=== PATIENT | female | born 1990 | race Caucasian/White ===

== ENCOUNTER 2023-12-08 07:43 | Inpatient (IN) ==
[~2023-12-08 07:43] MED LIST: ceFAZolin 2000MG 2,000 MG/15 ML SYR IV SCH
[2023-12-08] MEDS ORDERED: LIDOCAINE 1% LOCAL 20 ML VIAL INFIL PRN (08:04)
[2023-12-08] MEDS ORDERED: ACETAMINOPHEN 325 MG TAB PO PRN (08:04)
[2023-12-08] MEDS ORDERED: CALCIUM CARBONATE 500 MG CHEWABLE TAB PO PRN (08:04)
[2023-12-08 08:32] LABS: Hematocrit (blood only) 38.3 % (37.0-47.0); Hemoglobin 13.3 g/dl (12.0-16.0); Mean Corpuscular Hemoglobin 32.9 pg (25.0-34.0); Mean Corpuscular Hgb Conc 34.7 g/dL (32.0-36.0); Mean Corpuscular Volume 94.8 fL (80.0-100.0); Mean Platelet Volume 9.3 fL (9.4-12.4); Platelet Count 165 K/uL (130-400); RDW Coefficient of Variation 12.1 % (11.5-14.5); RDW Standard Deviation 41.9 fL (36.4-46.3); Red Blood Count 4.04 M/uL (4.20-5.40); White Blood Count 9.24 K/ul (4.8-10.8)
--- NOTE | 2023-12-08 09:15 | History & Physical Report ---
Date of Service December 08, 2023 Assessment & Plan (1) Encounter for supervision of normal first : Plan Pt is a 33 y/o female currently at 41 WGA with an ERIC 12/01/23 as determined by Ultrasound who is here for induction. Her has been uncomplicated. Vitals and Hgb are currently stable. Cervical balloon catheter placed Will start Pitocin Monitor BP Consult anesthesiology for epidural per pt request Admission and Anticipated Discharge Date Admission Date: December 08, 2023 History of Present Illness Primary Care Provider: NO PCP Pt is a 33 y/o female currently at 41 WGA with an ERIC 12/01/23 as determined by Ultrasound who is here for induction. Her was uncomplicated. _X contractions; _X movement; _ fluid loss; _ bloody show External FHT and external uterine monitors used; Category 1 tracing; moderate FHT variability. Had regular appointments with OB. Labs: (04/26/23) Blood type: O+ Antibody screen: neg H.3 (today) Hct:38.3% (today) WBC: 9.24 (today) Plt: 165 (today) Rubella: Non-immune VDRL/RPR: Neg Gonorrhea: Neg Chlamydia: Neg HIV: neg HbSAg: Non immune GBS: neg Other screens: cff-DNA: _ (see scanned documents) Allergies Allergy/AdvReac Type Severity Reaction Status Date / Time lactose Allergy Intermediate Hives Verified 12/07/23 09:54 Home Medications Medication Instructions Recorded Confirmed Type fluoxetine 20 mg tablet 20 mg PO DAILY 12/08/23 12/08/23 History vits no.124-ferrous fum 1 tab PO DAILY 12/08/23 12/08/23 History 27 mg iron-folic acid 800 mcg tablet ( Vitamin) Patient History Medical History (Updated 12/08/23 @ 09:52 by Jyoti Nolasco DO) HSV-1 (herpes simplex virus 1) infection PTSD (post-traumatic stress disorder) Varicella vaccination Surgical History No pertinent past surgical history Family History Mother Cancer Dyslipidemia Alcoholism Father Dyslipidemia Alcoholism Denies family history of Ovarian cancer Breast cancer Colonic polyp Social History (Updated 09/21/23 @ 13:15 by Jennyfer Blake RN) Smoking Status: Never smoker Do You Dip or Chew Tobacco: No; Hx Alcohol Use: No Hx Substance Use: No Preferred Language: Occitan Communication Ability: Effective Instrument Lens Generator Required: No Beliefs That Will Affect Care: None marital status: marital status details: [place] [phone] Current Living Situation: Spouse and Family Current Living Situation Comment: and in-laws current occupational status: employed current occupation: [employer] Feels Safe at Home: Yes Safety Concerns: Feels Safe At This Time Assistive Devices: None Review of Systems Denies fever, chills, sweats Denies shortness of breath, difficulty breathing, chest pain, palpitations, chest pressure. Denies breast pain. Denies dysuria. Denies headache or changes in vision. Physical Exam Physical Exam: General: Alert, oriented. No acute distress. Cardiac: Regular rate and rhythm, no murmurs/rubs/gallops. Respiratory: Clear to auscultation bilaterally a/p, no wheezes/rales/rhonchi. No increased work of breathing. Symmetrical chest rise. No respiratory distress. Abdomen: Gravid; Soft, non tender Pelvic: Dilation closed; Effacement thick; Station -[address] Poe Lower Extremities: No lower extremity edema or swelling. No deep calf pain. Cheri's negative bilaterally Results & Data Vital Signs (Past 12 Hours) Vital Signs Temp Pulse Resp BP 12/08/23 07:56 36.6 C 20 12/08/23 07:52 79 123/71 Code Status & VTE Plan VTE Prophylaxis Plan VTE Prophylaxis will be ordered: No Resident Activity Tracking Resident Involvement: Resident Care Provided Care Provided: Adult Hospital Medicine
[2023-12-08] MEDS: FLUoxetine HCL 20 MG CAP PO SCH (11:13)
--- NOTE | 2023-12-08 12:16 | Labor Progress Brief Note ---
Date of Service December 08, 2023 Patient spontaneously ruptured membranes on her own and the presenting part is high 6 cm now some variable D cells no cord is palpated Pitocin stopped due to D cells but contractions do bring the baby's head down will observe carefully Assessment & Plan Admission and Anticipated Discharge Date Admission Date: December 08, 2023 Results & Data Vital Signs (Past 12 Hours) Vital Signs Temp Pulse Resp BP 12/08/23 10:48 63 12/08/23 10:48 98/60 L 12/08/23 07:56 97.9 F 20 12/08/23 07:52 79 123/71 Coding Level of Care Code None
[2023-12-08] MEDS: OXYTOCIN 30 UNITS/NSS 30 UNITS/500 ML BAG IV PRN (12:41)
[2023-12-08] MEDS: LACTATED RINGER'S 1,000 ML IV PRN (12:42)
--- NOTE | 2023-12-08 13:56 | Labor Progress Brief Note ---
Date of Service December 08, 2023 Repetitive decelerations with contractions following a variable pattern we did place an IUPC and a scalp clip amnioinfusion is started initially the baby's head was too high but it has descended down to a -1 station and I was able to place the IUPC will do a 600 cc bolus over the first hour and see if she responds I discussed my concern if the D cells worsen we would have to proceed to section. Hopefully she can progress quickly discussed that D cells well common in labor if repetitive and deep or prolonged can cause issues with the baby we did discuss the option of a at this stage she would like to pursue an attempted vaginal delivery and I think this is reasonable unless the tracing worsens hopefully the amnioinfusion will help note considerable time spent at patient's bedside Assessment & Plan Admission and Anticipated Discharge Date Admission Date: December 08, 2023 Results & Data Vital Signs (Past 12 Hours) Vital Signs Temp Pulse Resp BP 12/08/23 12:43 71 12/08/23 12:43 115/65 12/08/23 10:48 63 12/08/23 10:48 98/60 L 12/08/23 07:56 97.9 F 20 12/08/23 07:52 79 123/71 Coding Level of Care Code None
--- NOTE | 2023-12-09 06:25 | Anesthesiology Consultation ---
Date of Service December 09, 2023 Assessment & Plan Chart Review Chart Review: Patient NOT seen in Pre Admission Testing and Acceptable Risk for Labor Epidural Consults Requested none ASA ASA2 Proposed Anesthesia Anesthesia Type: Labor Epidural Risk / Benefits Reviewed With: PT / POA / Parent / Guardian, Accepts Plan and Informed Consent Obtained History Height/Weight Height: 5 ft 7 in Weight: 95.708 kg Allergies Allergy/AdvReac Type Severity Reaction Status Date / Time lactose Allergy Intermediate Hives Verified 12/07/23 09:54 Medications Home Medications Medication Instructions Recorded Confirmed Last Taken fluoxetine 20 mg tablet 20 mg PO DAILY 12/08/23 12/08/23 12/08/23 06:00 vits no.124-ferrous fum 1 tab PO DAILY 12/08/23 12/08/23 12/08/23 06:00 27 mg iron-folic acid 800 mcg tablet ( Vitamin) Active Medications Generic Name Dose Route Start Last Admin Trade Name Freq PRN Reason Stop Dose Admin Fluoxetine HCl 20 mg 12/08/23 09:00 12/08/23 11:13 Fluoxetine Hcl 20 Mg Cap PO 01/07/24 08:59 Not Given DAILY MELISSA Oxytocin 30 units in 500 mls @ 16 mls/hr 12/08/23 08:04 12/09/23 05:00 Pitocin 30 Units/Nss IV 12/10/23 08:03 0.96 units/hr .Q24H PRN 16 mls/hr Labor Induction/Augmentation Titration Protocol 0.96 UNITS/HR Lactated Ringer's 1,000 mls @ 125 mls/hr 12/08/23 08:04 12/09/23 05:08 Lr IV 12/10/23 08:03 125 mls/hr .Q8H PRN Administration L&D Protocol Protocol NPO Date Last Intake of Fluids: 12/09/23 Time Last Intake of Fluids: 06:20 Date Last Intake of Solids: 12/08/23 Time Last Intake of Solids: 23:00 Past Medical History Medical History (Updated 12/08/23 @ 09:52 by Jyoti Nolasco DO) HSV-1 (herpes simplex virus 1) infection PTSD (post-traumatic stress disorder) Varicella vaccination Exercise / Class Metabolic Activity 1 > 8 Run/Swim/Ski/Tennis Past Family History Family History Mother Cancer Dyslipidemia Alcoholism Father Dyslipidemia Alcoholism Denies family history of Ovarian cancer Breast cancer Colonic polyp Past Surgical History Surgical History No pertinent past surgical history Past Anesthesia History No Hx of Anesthesia Complications and No Family Hx of Anesthesia Complications History of PONV No Hx of PONV and No Hx of Motion Sickness Social History Smoking Status: Never smoker Do You Dip or Chew Tobacco: No Hx Alcohol Use: No Hx Substance Use: No Review of Systems ROS Unobtainable: All systems reviewed & are unremarkable except as noted in HPI & below Physical Exam Vital Signs Last Vital Signs Temp 36.8 C 12/09/23 00:11 Pulse 75 12/09/23 06:21 Resp 20 12/08/23 17:27 BP 112/68 12/09/23 05:07 Pulse Ox 96 12/09/23 06:21 ENMT Mouth: no TMJ abnormality Thyromental Distance: > or= 3.5 Finger Breadths Mallampati Class: II Neck normal visual inspection and trachea midline; neck extension not limited Respiratory normal respiratory effort Auscultation: lungs clear to auscultation bilaterally Cardiovascular Rate/Rhythm: regular rate and regular rhythm Heart Sounds: no murmur Musculoskeletal Spine: normal cervical ROM Extremities: full ROM of extremities Neurologic moves all extremities Psychiatric Orientation: alert and oriented x 3 Testing Laboratory Results 12/08/23 08:19
[2023-12-09] MEDS: SODIUM CHLORIDE 0.9% PF INJ 10 ML VIAL ONE (06:44)
[2023-12-09] MEDS: BUPIVACAINE 0.25% PF 30 ML VIAL ONE (06:44)
[2023-12-09] MEDS: LIDOCAINE 2%/EPINEPHRINE 1:200,000 20 ML PF ONE (06:44)
[2023-12-09] MEDS: fentANYL 2 MCG/ML BUPIVacaine 0.125%-NSS 100ML BAG ONE (06:45)
[2023-12-09] MEDS ORDERED: diphenhydrAMINE 50 MG/ML VIAL IV PRN (06:49)
[2023-12-09] MEDS ORDERED: ROPIVACAINE 0.5% PF 5 MG/ML 20 ML VIAL EPI PRN (06:49)
[2023-12-09] MEDS ORDERED: BUPIVACAINE 0.25% PF 30 ML VIAL EPI PRN (06:49)
[2023-12-09] MEDS ORDERED: NALOXONE HCL 1 MG in SODIUM CHLORIDE 0.9% 1,000 ML IV PRN (06:49)
[2023-12-09] MEDS ORDERED: ePHEDrine sulfate 50 MG/ML AMP IV PRN (06:49)
[2023-12-09] MEDS ORDERED: NALBUPHINE HCL INJ 10 MG/ML AMP IV PRN (06:49)
[2023-12-09] MEDS ORDERED: fentaNYL citrate PF 100 MCG/2 ML VIAL EPI PRN (06:49)
[2023-12-09] MEDS ORDERED: NALOXONE HCL 0.4 MG/1 ML VIAL/CARP IV PRN (06:49)
[2023-12-09] MEDS ORDERED: SODIUM CHLORIDE 0.9% PF INJ 10 ML VIAL EPI PRN (06:49)
[2023-12-09] MEDS ORDERED: LIDOCAINE 2% MPF LOCAL 5 ML VIAL EPI PRN (06:49)
[2023-12-09] MEDS ORDERED: ONDANSETRON INJ 2 MG/ML 2 ML VIAL IV PRN (06:50)
[2023-12-09] MEDS: ePHEDrine sulfate 50 MG/ML AMP ONE (06:51)
--- NOTE | 2023-12-09 07:05 | Labor Progress Brief Note ---
Date of Service December 09, 2023 Patient has been induced with Pitocin multiple attempts to get into strong contraction pattern with 1 reset of Pitocin her heart rate is category 1 There is contractions started to increase in intensity I recommended epidural so we could perform artificial rupture membranes patient agreed cervix is palpated to in 50-2 artificial rupture membranes for clear fluid is performed expectant management Assessment & Plan Admission and Anticipated Discharge Date Admission Date: December 08, 2023 Results & Data Vital Signs (Past 12 Hours) Vital Signs Temp Pulse BP Pulse Ox 12/09/23 07:03 79 110/68 91 12/09/23 07:01 85 106/59 L 100 12/09/23 06:59 82 103/64 12/09/23 06:57 70 109/66 12/09/23 06:56 97 12/09/23 06:56 88 12/09/23 06:56 78 100/60 12/09/23 06:53 85 81/46 L 12/09/23 06:52 73 90/55 L 12/09/23 06:51 96 12/09/23 06:51 74 12/09/23 06:51 77 80/43 L 12/09/23 06:49 75 93/53 L 12/09/23 06:47 85 83/47 L 12/09/23 06:46 96 12/09/23 06:46 82 12/09/23 06:46 84 93/52 L 12/09/23 06:43 92 H 122/69 12/09/23 06:41 89 96 12/09/23 06:36 80 98 12/09/23 06:31 80 98 12/09/23 06:26 82 97 12/09/23 06:21 75 96 12/09/23 05:07 69 112/68 12/09/23 04:15 68 105/59 L 12/09/23 03:15 90 110/61 12/09/23 02:16 78 113/69 12/09/23 01:16 80 122/67 12/09/23 00:14 89 108/69 12/09/23 00:11 98.2 F 12/08/23 23:01 61 12/08/23 23:01 102/61 12/08/23 22:34 66 12/08/23 22:34 115/71 12/08/23 21:23 64 12/08/23 21:23 117/75 12/08/23 20:25 64 12/08/23 20:25 117/75 12/08/23 19:16 67 12/08/23 19:16 129/76 Coding Level of Care Code None
--- NOTE | 2023-12-09 08:57 | Labor Progress Brief Note ---
Date of Service December 09, 2023 Subjective pt comfortable Assessment & Plan (1) Encounter for induction of labor: Plan iupc placed, will see how this helps increase pit to achieve appropriate labor pattern. fhts categ 1. Admission and Anticipated Discharge Date Admission Date: December 08, 2023 Physical Exam Constitutional: WD/WN, vitals as above Genitourinary: Manual OB Exam: + cervical dilation (2), + cervical effacement 80% and + station -2 OB Exam Monitor Tracing: + external FHT monitor used, + external uterine monitor used (q2-3), + category I and + normal FHT variability Results & Data Vital Signs (Past 12 Hours) Vital Signs Temp Pulse Resp BP Pulse Ox 12/09/23 08:54 83 91 12/09/23 08:51 77 115/67 100 12/09/23 08:48 82 92 12/09/23 08:46 75 98 12/09/23 08:41 77 100 12/09/23 08:36 75 113/75 99 12/09/23 08:31 87 100 12/09/23 08:26 83 100 12/09/23 08:22 75 122/78 12/09/23 08:21 78 100 12/09/23 08:19 97 H 91 12/09/23 08:16 79 96 12/09/23 08:11 85 96 12/09/23 08:07 77 117/75 12/09/23 08:06 81 97 12/09/23 08:01 74 97 12/09/23 07:56 77 99 12/09/23 07:51 99 12/09/23 07:51 70 12/09/23 07:51 72 115/75 12/09/23 07:46 76 100 12/09/23 07:41 74 99 12/09/23 07:36 74 115/67 99 12/09/23 07:31 74 20 99 12/09/23 07:26 70 100 12/09/23 07:25 98.2 F 20 12/09/23 07:21 71 100 12/09/23 07:18 74 110/63 12/09/23 07:16 72 99 12/09/23 07:13 71 113/73 12/09/23 07:11 100 12/09/23 07:11 74 12/09/23 07:11 79 93 12/09/23 07:06 72 100 12/09/23 07:05 94 H 109/67 12/09/23 07:03 79 110/68 91 12/09/23 07:01 85 106/59 L 100 12/09/23 06:59 82 103/64 12/09/23 06:57 70 109/66 12/09/23 06:56 97 12/09/23 06:56 88 12/09/23 06:56 78 100/60 12/09/23 06:53 85 81/46 L 12/09/23 06:52 73 90/55 L 12/09/23 06:51 96 12/09/23 06:51 74 12/09/23 06:51 77 80/43 L 12/09/23 06:49 75 93/53 L 12/09/23 06:47 85 83/47 L 12/09/23 06:46 96 12/09/23 06:46 82 12/09/23 06:46 84 93/52 L 12/09/23 06:43 92 H 122/69 12/09/23 06:41 89 96 12/09/23 06:36 80 98 12/09/23 06:31 80 98 12/09/23 06:26 82 97 12/09/23 06:21 75 96 12/09/23 05:07 69 112/68 12/09/23 04:15 68 105/59 L 12/09/23 03:15 90 110/61 12/09/23 02:16 78 113/69 12/09/23 01:16 80 122/67 12/09/23 00:14 89 108/69 12/09/23 00:11 98.2 F 12/08/23 23:01 61 12/08/23 23:01 102/61 12/08/23 22:34 66 12/08/23 22:34 115/71 12/08/23 21:23 64 12/08/23 21:23 117/75 Coding Level of Care Code None Diagnoses Encounter for induction of labor Z34.90
[2023-12-09] MEDS: fentaNYL citrate PF 100 MCG/2 ML VIAL ONE (09:43)
[2023-12-09] MEDS: SODIUM CHLORIDE 0.9% PF INJ 10 ML VIAL EPI STA (09:44)
[2023-12-09] MEDS: BUPIVACAINE 0.25% PF 30 ML VIAL EPI STA (09:44)
[2023-12-09] MEDS: fentaNYL citrate PF 100 MCG/2 ML VIAL EPI STA (09:44)
[2023-12-09] MEDS: LIDOCAINE 2%/EPINEPHRINE 1:200,000 20 ML PF EPI STA (09:44)
--- NOTE | 2023-12-09 12:13 | Labor Progress Brief Note ---
Date of Service December 09, 2023 Subjective comfortable with epidural Assessment & Plan (1) 41 weeks gestation of : (2) Encounter for induction of labor: Plan fhts categ 1. no significant labor pattern, rec halving the pit and then reclimb. pt agreeable. did discuss dx of failed induction, given use of high doses of pit and no pattern. i do think we have more time to try to use pitocin to attempt to achieve pattern. pt agreeable. Admission and Anticipated Discharge Date Admission Date: December 08, 2023 Physical Exam Constitutional: WD/WN, vitals as above Genitourinary: OB Exam Monitor Tracing: + external FHT monitor used, + intra- uterine pressure catheter used (pit at 30, mvu's inadeq), + category I and + normal FHT variability Results & Data Vital Signs (Past 12 Hours) Vital Signs Temp Pulse Resp BP Pulse Ox 12/09/23 12:06 75 130/84 95 12/09/23 12:03 72 93 12/09/23 12:01 74 97 12/09/23 11:56 69 98 12/09/23 11:53 77 92 12/09/23 11:51 67 119/71 98 12/09/23 11:46 71 98 12/09/23 11:41 98 12/09/23 11:41 74 12/09/23 11:41 71 93 12/09/23 11:36 98 12/09/23 11:36 77 12/09/23 11:36 68 114/73 12/09/23 11:31 73 96 12/09/23 11:26 75 97 12/09/23 11:21 77 117/73 98 12/09/23 11:16 75 98 12/09/23 11:11 69 98 12/09/23 11:06 64 98 12/09/23 11:05 67 103/59 L 12/09/23 11:01 98.6 F 65 20 97 12/09/23 10:56 63 97 12/09/23 10:51 99 12/09/23 10:51 70 12/09/23 10:51 66 101/55 L 12/09/23 10:46 66 98 12/09/23 10:41 73 97 12/09/23 10:36 66 99 12/09/23 10:35 68 99/57 L 12/09/23 10:31 72 20 96 12/09/23 10:26 67 98 12/09/23 10:21 99 12/09/23 10:21 71 12/09/23 10:21 64 94/56 L 12/09/23 10:16 72 98 12/09/23 10:11 71 98 12/09/23 10:06 73 97 12/09/23 10:05 70 104/67 12/09/23 10:01 72 20 97 12/09/23 09:56 80 97 12/09/23 09:54 71 94 12/09/23 09:51 75 95 12/09/23 09:50 68 106/65 12/09/23 09:49 70 94 12/09/23 09:46 68 95 12/09/23 09:41 84 98 12/09/23 09:36 97 12/09/23 09:36 78 12/09/23 09:36 70 108/73 12/09/23 09:34 73 94 12/09/23 09:31 70 20 95 12/09/23 09:26 73 95 12/09/23 09:22 93 12/09/23 09:22 72 12/09/23 09:22 68 110/69 12/09/23 09:21 66 96 12/09/23 09:16 72 96 12/09/23 09:11 74 96 12/09/23 09:06 97 12/09/23 09:06 71 12/09/23 09:06 68 110/68 12/09/23 09:01 98.2 F 84 20 99 12/09/23 08:56 73 98 12/09/23 08:54 83 91 12/09/23 08:51 77 115/67 100 12/09/23 08:48 82 92 12/09/23 08:46 75 98 12/09/23 08:41 77 100 12/09/23 08:36 75 113/75 99 12/09/23 08:31 87 100 12/09/23 08:26 83 100 12/09/23 08:22 75 122/78 12/09/23 08:21 78 100 12/09/23 08:19 97 H 91 12/09/23 08:16 79 96 12/09/23 08:11 85 96 12/09/23 08:07 77 117/75 12/09/23 08:06 81 97 12/09/23 08:01 74 97 12/09/23 07:56 77 99 12/09/23 07:51 99 12/09/23 07:51 70 12/09/23 07:51 72 115/75 12/09/23 07:46 76 100 12/09/23 07:41 74 99 12/09/23 07:36 74 115/67 99 12/09/23 07:31 74 20 99 12/09/23 07:26 70 100 12/09/23 07:25 98.2 F 20 12/09/23 07:21 71 100 12/09/23 07:18 74 110/63 12/09/23 07:16 72 99 12/09/23 07:13 71 113/73 12/09/23 07:11 100 12/09/23 07:11 74 12/09/23 07:11 79 93 12/09/23 07:06 72 100 12/09/23 07:05 94 H 109/67 12/09/23 07:03 79 110/68 91 12/09/23 07:01 85 106/59 L 100 12/09/23 06:59 82 103/64 12/09/23 06:57 70 109/66 12/09/23 06:56 97 12/09/23 06:56 88 12/09/23 06:56 78 100/60 12/09/23 06:53 85 81/46 L 12/09/23 06:52 73 90/55 L 12/09/23 06:51 96 12/09/23 06:51 74 12/09/23 06:51 77 80/43 L 12/09/23 06:49 75 93/53 L 12/09/23 06:47 85 83/47 L 12/09/23 06:46 96 12/09/23 06:46 82 12/09/23 06:46 84 93/52 L 12/09/23 06:43 92 H 122/69 12/09/23 06:41 89 96 12/09/23 06:36 80 98 12/09/23 06:31 80 98 12/09/23 06:26 82 97 12/09/23 06:21 75 96 12/09/23 05:07 69 112/68 09/06/24 04:15 68 105/59 L 12/09/23 03:15 90 110/61 12/09/23 02:16 78 113/69 12/09/23 01:16 80 122/67 12/09/23 00:14 89 108/69 12/09/23 00:11 98.2 F Coding Level of Care Code None Diagnoses 41 weeks gestation of O48.0; Z3A.41 Encounter for induction of labor Z34.90
--- NOTE | 2023-12-09 14:44 | Labor Progress Brief Note ---
Date of Service December 09, 2023 Subjective pt comfortable Assessment & Plan (1) 41 weeks gestation of : (2) Encounter for induction of labor: Plan good cx change. rec dec pit to allow for in utero resuscitation. iupc in place but never really showed adequate labor pattern of note. fhts now improved, categ 1. Admission and Anticipated Discharge Date Admission Date: December 08, 2023 Physical Exam Constitutional: WD/WN, vitals as above Genitourinary: Manual OB Exam: + cervical dilation 4 cm, + cervical effacement 100% and + station -1 OB Exam Monitor Tracing: + external FHT monitor used, + intra-uterine pressure catheter used (iupc replaced, ctx noted without rest. pit at 23, dec to 15), + category II (? variables) and + normal FHT variability Results & Data Vital Signs (Past 12 Hours) Vital Signs Temp Pulse Resp BP Pulse Ox 12/09/23 14:39 84 102/55 L 12/09/23 14:37 95 H 99 12/09/23 14:36 84 93 12/09/23 14:32 86 100 12/09/23 14:26 78 98 12/09/23 14:22 84 91 12/09/23 14:21 96 12/09/23 14:21 89 12/09/23 14:21 85 120/72 12/09/23 14:16 67 96 12/09/23 14:13 70 94 12/09/23 14:11 68 95 12/09/23 14:06 95 12/09/23 14:06 66 12/09/23 14:06 75 120/72 12/09/23 14:01 79 97 12/09/23 13:56 71 97 12/09/23 13:51 97 12/09/23 13:51 73 12/09/23 13:51 73 123/75 12/09/23 13:46 72 97 12/09/23 13:41 67 98 12/09/23 13:36 98 12/09/23 13:36 69 12/09/23 13:36 67 121/75 12/09/23 13:31 78 20 99 12/09/23 13:26 68 96 12/09/23 13:21 94 12/09/23 13:21 79 12/09/23 13:21 78 111/68 12/09/23 13:16 69 94 12/09/23 13:11 71 95 12/09/23 13:06 96 12/09/23 13:06 72 12/09/23 13:06 73 114/68 12/09/23 13:01 98.6 F 80 18 98 12/09/23 12:56 77 96 12/09/23 12:51 73 123/75 96 12/09/23 12:46 71 95 12/09/23 12:41 69 95 12/09/23 12:36 97 12/09/23 12:36 70 12/09/23 12:36 75 116/73 12/09/23 12:34 79 93 12/09/23 12:31 77 20 95 12/09/23 12:26 71 96 12/09/23 12:21 83 119/73 96 12/09/23 12:16 73 96 12/09/23 12:11 74 96 12/09/23 12:09 78 94 12/09/23 12:06 75 130/84 95 12/09/23 12:03 72 93 12/09/23 12:01 74 18 97 12/09/23 11:56 69 98 12/09/23 11:53 77 92 12/09/23 11:51 67 119/71 98 12/09/23 11:46 71 98 12/09/23 11:41 98 12/09/23 11:41 74 12/09/23 11:41 71 93 12/09/23 11:36 98 12/09/23 11:36 77 12/09/23 11:36 68 114/73 12/09/23 11:31 73 18 96 12/09/23 11:26 75 97 12/09/23 11:21 77 117/73 98 12/09/23 11:16 75 98 12/09/23 11:11 69 98 12/09/23 11:06 64 98 12/09/23 11:05 67 103/59 L 12/09/23 11:01 98.6 F 65 20 97 12/09/23 10:56 63 97 12/09/23 10:51 99 12/09/23 10:51 70 12/09/23 10:51 66 101/55 L 12/09/23 10:46 66 98 12/09/23 10:41 73 97 12/09/23 10:36 66 99 09/06/24 10:35 68 99/57 L 12/09/23 10:31 72 20 96 12/09/23 10:26 67 98 12/09/23 10:21 99 12/09/23 10:21 71 12/09/23 10:21 64 94/56 L 12/09/23 10:16 72 98 12/09/23 10:11 71 98 12/09/23 10:06 73 97 12/09/23 10:05 70 104/67 12/09/23 10:01 72 20 97 12/09/23 09:56 80 97 12/09/23 09:54 71 94 12/09/23 09:51 75 95 12/09/23 09:50 68 106/65 12/09/23 09:49 70 94 12/09/23 09:46 68 95 12/09/23 09:41 84 98 12/09/23 09:36 97 12/09/23 09:36 78 12/09/23 09:36 70 108/73 12/09/23 09:34 73 94 12/09/23 09:31 70 20 95 12/09/23 09:26 73 95 12/09/23 09:22 93 12/09/23 09:22 72 12/09/23 09:22 68 110/69 12/09/23 09:21 66 96 12/09/23 09:16 72 96 12/09/23 09:11 74 96 12/09/23 09:06 97 12/09/23 09:06 71 12/09/23 09:06 68 110/68 12/09/23 09:01 98.2 F 84 20 99 12/09/23 08:56 73 98 12/09/23 08:54 83 91 12/09/23 08:51 77 115/67 100 12/09/23 08:48 82 92 12/09/23 08:46 75 98 12/09/23 08:41 77 100 12/09/23 08:36 75 113/75 99 12/09/23 08:31 87 100 12/09/23 08:26 83 100 12/09/23 08:22 75 122/78 12/09/23 08:21 78 100 12/09/23 08:19 97 H 91 12/09/23 08:16 79 96 12/09/23 08:11 85 96 12/09/23 08:07 77 117/75 12/09/23 08:06 81 97 12/09/23 08:01 74 97 12/09/23 07:56 77 99 12/09/23 07:51 99 12/09/23 07:51 70 12/09/23 07:51 72 115/75 12/09/23 07:46 76 100 12/09/23 07:41 74 99 12/09/23 07:36 74 115/67 99 12/09/23 07:31 74 20 99 12/09/23 07:26 70 100 12/09/23 07:25 98.2 F 20 12/09/23 07:21 71 100 12/09/23 07:18 74 110/63 12/09/23 07:16 72 99 12/09/23 07:13 71 113/73 12/09/23 07:11 100 12/09/23 07:11 74 12/09/23 07:11 79 93 12/09/23 07:06 72 100 12/09/23 07:05 94 H 109/67 12/09/23 07:03 79 110/68 91 12/09/23 07:01 85 106/59 L 100 12/09/23 06:59 82 103/64 12/09/23 06:57 70 109/66 12/09/23 06:56 97 12/09/23 06:56 88 12/09/23 06:56 78 100/60 12/09/23 06:53 85 81/46 L 12/09/23 06:52 73 90/55 L 12/09/23 06:51 96 12/09/23 06:51 74 12/09/23 06:51 77 80/43 L 12/09/23 06:49 75 93/53 L 12/09/23 06:47 85 83/47 L 12/09/23 06:46 96 12/09/23 06:46 82 12/09/23 06:46 84 93/52 L 12/09/23 06:43 92 H 122/69 12/09/23 06:41 89 96 12/09/23 06:36 80 98 12/09/23 06:31 80 98 12/09/23 06:26 82 97 12/09/23 06:21 75 96 12/09/23 05:07 69 112/68 12/09/23 04:15 68 105/59 L 12/09/23 03:15 90 110/61 Coding Level of Care Code None Diagnoses 41 weeks gestation of O48.0; Z3A.41 Encounter for induction of labor Z34.90
[2023-12-09] MEDS: fentANYL 2 MCG/ML BUPIVacaine 0.125%-NSS 100ML BAG EPI PRN (16:02)
--- NOTE | 2023-12-09 17:07 | Labor Progress Brief Note ---
Date of Service December 09, 2023 Subjective comfortable Assessment & Plan (1) 41 weeks gestation of : (2) Encounter for induction of labor: Plan good cx change. fhts categ 1. c/w pitocin Admission and Anticipated Discharge Date Admission Date: December 08, 2023 Physical Exam Constitutional: WD/WN, vitals as above Genitourinary: Manual OB Exam: + cervical dilation 7 cm, + cervical effacement 100% and + station 0 OB Exam Monitor Tracing: + external FHT monitor used, + intra-uterine pressure catheter used (pit at 19. mvu's inadeq), + category I and + normal FHT variability Results & Data Vital Signs (Past 12 Hours) Vital Signs Temp Pulse Resp BP Pulse Ox 12/09/23 17:02 70 96 12/09/23 16:57 67 97 12/09/23 16:52 69 119/68 98 12/09/23 16:47 74 97 12/09/23 16:42 71 93 12/09/23 16:37 97 12/09/23 16:37 66 12/09/23 16:37 64 129/80 12/09/23 16:32 69 99 12/09/23 16:31 20 12/09/23 16:31 20 12/09/23 16:27 79 100 12/09/23 16:22 76 98 12/09/23 16:21 64 122/72 12/09/23 16:17 74 97 12/09/23 16:12 68 97 12/09/23 16:07 68 97 12/09/23 16:05 67 113/65 12/09/23 16:04 77 88 L 12/09/23 16:02 74 95 12/09/23 16:01 20 12/09/23 16:01 20 12/09/23 15:57 70 100 12/09/23 15:52 71 99 12/09/23 15:51 64 112/66 12/09/23 15:49 73 86 L 12/09/23 15:47 72 96 12/09/23 15:42 66 97 12/09/23 15:37 69 98 12/09/23 15:36 68 112/67 12/09/23 15:32 68 99 12/09/23 15:31 20 12/09/23 15:31 98.6 F 20 12/09/23 15:27 64 97 09/06/24 15:22 71 100 12/09/23 15:21 64 106/60 12/09/23 15:17 78 85 L 12/09/23 15:12 63 97 12/09/23 15:07 65 98 12/09/23 15:06 60 117/70 12/09/23 15:02 62 98 12/09/23 15:01 20 12/09/23 15:01 20 12/09/23 14:57 70 99 12/09/23 14:52 68 100 12/09/23 14:51 69 105/63 12/09/23 14:47 61 98 12/09/23 14:42 84 100 12/09/23 14:39 84 102/55 L 12/09/23 14:37 95 H 99 12/09/23 14:36 84 93 12/09/23 14:32 86 100 12/09/23 14:31 20 12/09/23 14:31 20 12/09/23 14:26 78 98 12/09/23 14:22 84 91 12/09/23 14:21 96 12/09/23 14:21 89 12/09/23 14:21 85 120/72 12/09/23 14:16 67 96 12/09/23 14:13 70 94 12/09/23 14:11 68 95 12/09/23 14:06 95 12/09/23 14:06 66 12/09/23 14:06 75 120/72 12/09/23 14:01 79 97 12/09/23 13:56 71 97 12/09/23 13:51 97 12/09/23 13:51 73 12/09/23 13:51 73 123/75 12/09/23 13:46 72 97 12/09/23 13:41 67 98 12/09/23 13:36 98 12/09/23 13:36 69 12/09/23 13:36 67 121/75 12/09/23 13:31 78 20 99 12/09/23 13:26 68 96 12/09/23 13:21 94 12/09/23 13:21 79 12/09/23 13:21 78 111/68 12/09/23 13:16 69 94 12/09/23 13:11 71 95 12/09/23 13:06 96 12/09/23 13:06 72 12/09/23 13:06 73 114/68 12/09/23 13:01 98.6 F 80 18 98 12/09/23 12:56 77 96 12/09/23 12:51 73 123/75 96 12/09/23 12:46 71 95 12/09/23 12:41 69 95 12/09/23 12:36 97 12/09/23 12:36 70 12/09/23 12:36 75 116/73 12/09/23 12:34 79 93 12/09/23 12:31 77 20 95 12/09/23 12:26 71 96 12/09/23 12:21 83 119/73 96 12/09/23 12:16 73 96 12/09/23 12:11 74 96 12/09/23 12:09 78 94 12/09/23 12:06 75 130/84 95 12/09/23 12:03 72 93 12/09/23 12:01 74 18 97 12/09/23 11:56 69 98 12/09/23 11:53 77 92 12/09/23 11:51 67 119/71 98 12/09/23 11:46 71 98 12/09/23 11:41 98 12/09/23 11:41 74 12/09/23 11:41 71 93 12/09/23 11:36 98 12/09/23 11:36 77 12/09/23 11:36 68 114/73 12/09/23 11:31 73 18 96 12/09/23 11:26 75 97 12/09/23 11:21 77 117/73 98 12/09/23 11:16 75 98 12/09/23 11:11 69 98 12/09/23 11:06 64 98 12/09/23 11:05 67 103/59 L 12/09/23 11:01 98.6 F 65 20 97 12/09/23 10:56 63 97 12/09/23 10:51 99 12/09/23 10:51 70 12/09/23 10:51 66 101/55 L 12/09/23 10:46 66 98 12/09/23 10:41 73 97 12/09/23 10:36 66 99 12/09/23 10:35 68 99/57 L 12/09/23 10:31 72 20 96 12/09/23 10:26 67 98 12/09/23 10:21 99 12/09/23 10:21 71 12/09/23 10:21 64 94/56 L 12/09/23 10:16 72 98 12/09/23 10:11 71 98 12/09/23 10:06 73 97 12/09/23 10:05 70 104/67 12/09/23 10:01 72 20 97 12/09/23 09:56 80 97 12/09/23 09:54 71 94 12/09/23 09:51 75 95 12/09/23 09:50 68 106/65 12/09/23 09:49 70 94 12/09/23 09:46 68 95 12/09/23 09:41 84 98 12/09/23 09:36 97 12/09/23 09:36 78 12/09/23 09:36 70 108/73 12/09/23 09:34 73 94 12/09/23 09:31 70 20 95 12/09/23 09:26 73 95 12/09/23 09:22 93 12/09/23 09:22 72 12/09/23 09:22 68 110/69 12/09/23 09:21 66 96 12/09/23 09:16 72 96 12/09/23 09:11 74 96 12/09/23 09:06 97 12/09/23 09:06 71 12/09/23 09:06 68 110/68 12/09/23 09:01 98.2 F 84 20 99 12/09/23 08:56 73 98 12/09/23 08:54 83 91 12/09/23 08:51 77 115/67 100 12/09/23 08:48 82 92 12/09/23 08:46 75 98 12/09/23 08:41 77 100 12/09/23 08:36 75 113/75 99 12/09/23 08:31 87 100 12/09/23 08:26 83 100 12/09/23 08:22 75 122/78 12/09/23 08:21 78 100 12/09/23 08:19 97 H 91 12/09/23 08:16 79 96 12/09/23 08:11 85 96 12/09/23 08:07 77 117/75 12/09/23 08:06 81 97 12/09/23 08:01 74 97 12/09/23 07:56 77 99 12/09/23 07:51 99 12/09/23 07:51 70 12/09/23 07:51 72 115/75 12/09/23 07:46 76 100 12/09/23 07:41 74 99 12/09/23 07:36 74 115/67 99 12/09/23 07:31 74 20 99 12/09/23 07:26 70 100 12/09/23 07:25 98.2 F 20 12/09/23 07:21 71 100 12/09/23 07:18 74 110/63 12/09/23 07:16 72 99 12/09/23 07:13 71 113/73 12/09/23 07:11 100 12/09/23 07:11 74 12/09/23 07:11 79 93 12/09/23 07:06 72 100 12/09/23 07:05 94 H 109/67 12/09/23 07:03 79 110/68 91 12/09/23 07:01 85 106/59 L 100 12/09/23 06:59 82 103/64 12/09/23 06:57 70 109/66 12/09/23 06:56 97 12/09/23 06:56 88 12/09/23 06:56 78 100/60 12/09/23 06:53 85 81/46 L 12/09/23 06:52 73 90/55 L 12/09/23 06:51 96 12/09/23 06:51 74 12/09/23 06:51 77 80/43 L 12/09/23 06:49 75 93/53 L 12/09/23 06:47 85 83/47 L 12/09/23 06:46 96 12/09/23 06:46 82 12/09/23 06:46 84 93/52 L 12/09/23 06:43 92 H 122/69 12/09/23 06:41 89 96 12/09/23 06:36 80 98 12/09/23 06:31 80 98 12/09/23 06:26 82 97 12/09/23 06:21 75 96 12/09/23 05:07 69 112/68 Coding Level of Care Code None Diagnoses 41 weeks gestation of O48.0; Z3A.41 Encounter for induction of labor Z34.90
--- NOTE | 2023-12-09 18:50 | Labor Progress Brief Note ---
Date of Service December 09, 2023 Subjective feels some pressure Assessment & Plan (1) 41 weeks gestation of : (2) Encounter for induction of labor: Plan good cx change. fhts categ 1. pit at 23. Admission and Anticipated Discharge Date Admission Date: December 08, 2023 Physical Exam Constitutional: WD/WN, vitals as above Genitourinary: Manual OB Exam: + cervical dilation 9 cm, + cervical effacement 100% and + station + 1 OB Exam Monitor Tracing: + external FHT monitor used, + intra-uterine pressure catheter used (q2-3), + category I and + normal FHT variability Results & Data Vital Signs (Past 12 Hours) Vital Signs Temp Pulse Resp BP Pulse Ox 12/09/23 18:46 88 82 L 12/09/23 18:42 83 95 12/09/23 18:37 72 99 12/09/23 18:35 71 113/66 12/09/23 18:32 73 98 12/09/23 18:31 20 12/09/23 18:31 20 12/09/23 18:27 73 98 12/09/23 18:22 81 98 12/09/23 18:21 71 112/67 12/09/23 18:17 72 98 12/09/23 18:12 73 99 12/09/23 18:07 72 98 12/09/23 18:06 68 115/69 12/09/23 18:02 84 84 L 12/09/23 18:01 20 12/09/23 18:01 20 12/09/23 17:57 69 97 12/09/23 17:52 71 97 12/09/23 17:50 71 114/64 12/09/23 17:48 76 83 L 12/09/23 17:47 70 98 12/09/23 17:42 73 111/57 L 98 12/09/23 17:40 85 89 L 12/09/23 17:37 75 97 12/09/23 17:32 70 95 12/09/23 17:31 20 12/09/23 17:31 20 12/09/23 17:27 71 95 12/09/23 17:22 78 96 12/09/23 17:21 67 115/70 12/09/23 17:17 67 96 12/09/23 17:12 67 96 12/09/23 17:07 96 12/09/23 17:07 71 12/09/23 17:07 67 110/69 12/09/23 17:04 80 87 L 12/09/23 17:02 70 96 12/09/23 17:01 20 12/09/23 17:01 98.8 F 20 12/09/23 16:57 67 97 12/09/23 16:52 69 119/68 98 12/09/23 16:47 74 97 12/09/23 16:42 71 93 12/09/23 16:37 97 12/09/23 16:37 66 12/09/23 16:37 64 129/80 12/09/23 16:32 69 99 12/09/23 16:31 20 12/09/23 16:31 20 12/09/23 16:27 79 100 12/09/23 16:22 76 98 12/09/23 16:21 64 122/72 12/09/23 16:17 74 97 12/09/23 16:12 68 97 12/09/23 16:07 68 97 12/09/23 16:05 67 113/65 12/09/23 16:04 77 88 L 12/09/23 16:02 74 95 12/09/23 16:01 20 12/09/23 16:01 20 12/09/23 15:57 70 100 12/09/23 15:52 71 99 12/09/23 15:51 64 112/66 12/09/23 15:49 73 86 L 12/09/23 15:47 72 96 12/09/23 15:42 66 97 12/09/23 15:37 69 98 12/09/23 15:36 68 112/67 12/09/23 15:32 68 99 12/09/23 15:31 20 12/09/23 15:31 98.6 F 20 12/09/23 15:27 64 97 12/09/23 15:22 71 100 12/09/23 15:21 64 106/60 12/09/23 15:17 78 85 L 12/09/23 15:12 63 97 12/09/23 15:07 65 98 12/09/23 15:06 60 117/70 12/09/23 15:02 62 98 12/09/23 15:01 20 12/09/23 15:01 20 12/09/23 14:57 70 99 12/09/23 14:52 68 100 12/09/23 14:51 69 105/63 12/09/23 14:47 61 98 12/09/23 14:42 84 100 12/09/23 14:39 84 102/55 L 12/09/23 14:37 95 H 99 12/09/23 14:36 84 93 12/09/23 14:32 86 100 12/09/23 14:31 20 12/09/23 14:31 20 12/09/23 14:26 78 98 12/09/23 14:22 84 91 12/09/23 14:21 96 12/09/23 14:21 89 12/09/23 14:21 85 120/72 12/09/23 14:16 67 96 12/09/23 14:13 70 94 12/09/23 14:11 68 95 12/09/23 14:06 95 12/09/23 14:06 66 12/09/23 14:06 75 120/72 12/09/23 14:01 79 97 12/09/23 13:56 71 97 12/09/23 13:51 97 12/09/23 13:51 73 12/09/23 13:51 73 123/75 12/09/23 13:46 72 97 12/09/23 13:41 67 98 12/09/23 13:36 98 12/09/23 13:36 69 12/09/23 13:36 67 121/75 12/09/23 13:31 78 20 99 12/09/23 13:26 68 96 12/09/23 13:21 94 12/09/23 13:21 79 12/09/23 13:21 78 111/68 12/09/23 13:16 69 94 12/09/23 13:11 71 95 12/09/23 13:06 96 12/09/23 13:06 72 12/09/23 13:06 73 114/68 12/09/23 13:01 98.6 F 80 18 98 12/09/23 12:56 77 96 12/09/23 12:51 73 123/75 96 12/09/23 12:46 71 95 12/09/23 12:41 69 95 12/09/23 12:36 97 12/09/23 12:36 70 12/09/23 12:36 75 116/73 12/09/23 12:34 79 93 12/09/23 12:31 77 20 95 12/09/23 12:26 71 96 12/09/23 12:21 83 119/73 96 12/09/23 12:16 73 96 12/09/23 12:11 74 96 12/09/23 12:09 78 94 12/09/23 12:06 75 130/84 95 12/09/23 12:03 72 93 12/09/23 12:01 74 18 97 12/09/23 11:56 69 98 12/09/23 11:53 77 92 12/09/23 11:51 67 119/71 98 12/09/23 11:46 71 98 12/09/23 11:41 98 12/09/23 11:41 74 12/09/23 11:41 71 93 12/09/23 11:36 98 12/09/23 11:36 77 12/09/23 11:36 68 114/73 12/09/23 11:31 73 18 96 12/09/23 11:26 75 97 12/09/23 11:21 77 117/73 98 12/09/23 11:16 75 98 12/09/23 11:11 69 98 12/09/23 11:06 64 98 12/09/23 11:05 67 103/59 L 12/09/23 11:01 98.6 F 65 20 97 12/09/23 10:56 63 97 12/09/23 10:51 99 12/09/23 10:51 70 12/09/23 10:51 66 101/55 L 12/09/23 10:46 66 98 12/09/23 10:41 73 97 12/09/23 10:36 66 99 12/09/23 10:35 68 99/57 L 12/09/23 10:31 72 20 96 12/09/23 10:26 67 98 12/09/23 10:21 99 12/09/23 10:21 71 12/09/23 10:21 64 94/56 L 12/09/23 10:16 72 98 12/09/23 10:11 71 98 12/09/23 10:06 73 97 12/09/23 10:05 70 104/67 12/09/23 10:01 72 20 97 12/09/23 09:56 80 97 12/09/23 09:54 71 94 12/09/23 09:51 75 95 12/09/23 09:50 68 106/65 12/09/23 09:49 70 94 12/09/23 09:46 68 95 12/09/23 09:41 84 98 12/09/23 09:36 97 12/09/23 09:36 78 12/09/23 09:36 70 108/73 12/09/23 09:34 73 94 12/09/23 09:31 70 20 95 12/09/23 09:26 73 95 12/09/23 09:22 93 12/09/23 09:22 72 12/09/23 09:22 68 110/69 12/09/23 09:21 66 96 12/09/23 09:16 72 96 12/09/23 09:11 74 96 12/09/23 09:06 97 12/09/23 09:06 71 12/09/23 09:06 68 110/68 12/09/23 09:01 98.2 F 84 20 99 12/09/23 08:56 73 98 12/09/23 08:54 83 91 12/09/23 08:51 77 115/67 100 12/09/23 08:48 82 92 12/09/23 08:46 75 98 12/09/23 08:41 77 100 12/09/23 08:36 75 113/75 99 12/09/23 08:31 87 100 12/09/23 08:26 83 100 12/09/23 08:22 75 122/78 12/09/23 08:21 78 100 12/09/23 08:19 97 H 91 12/09/23 08:16 79 96 12/09/23 08:11 85 96 12/09/23 08:07 77 117/75 12/09/23 08:06 81 97 12/09/23 08:01 74 97 12/09/23 07:56 77 99 12/09/23 07:51 99 12/09/23 07:51 70 12/09/23 07:51 72 115/75 12/09/23 07:46 76 100 12/09/23 07:41 74 99 12/09/23 07:36 74 115/67 99 12/09/23 07:31 74 20 99 09/06/24 07:26 70 100 12/09/23 07:25 98.2 F 20 12/09/23 07:21 71 100 12/09/23 07:18 74 110/63 12/09/23 07:16 72 99 12/09/23 07:13 71 113/73 12/09/23 07:11 100 12/09/23 07:11 74 12/09/23 07:11 79 93 12/09/23 07:06 72 100 12/09/23 07:05 94 H 109/67 12/09/23 07:03 79 110/68 91 12/09/23 07:01 85 106/59 L 100 12/09/23 06:59 82 103/64 12/09/23 06:57 70 109/66 12/09/23 06:56 97 12/09/23 06:56 88 12/09/23 06:56 78 100/60 12/09/23 06:53 85 81/46 L 12/09/23 06:52 73 90/55 L 12/09/23 06:51 96 12/09/23 06:51 74 12/09/23 06:51 77 80/43 L Coding Level of Care Code None Diagnoses 41 weeks gestation of O48.0; Z3A.41 Encounter for induction of labor Z34.90
[2023-12-09] MEDS ORDERED: NURSING L&D Epidural Breakthrough Pain Update ONE (20:37)
--- NOTE | 2023-12-09 21:14 | Labor Progress Brief Note ---
Date of Service December 09, 2023 Subjective pt feeling some right hip pain Assessment & Plan (1) 41 weeks gestation of : (2) Encounter for induction of labor: Plan c/w pitocin, will try to change position to knee chest to see if that aids reduction of ant lip. yoo is out. hopefully begin 2nd stage soon. fhts categ 1 Admission and Anticipated Discharge Date Admission Date: December 08, 2023 Physical Exam Constitutional: WD/WN, vitals as above Genitourinary: Manual OB Exam: + cervical dilation (ant lip, not well reduced with pushing. ), + cervical effacement 100% and + station + 2 OB Exam Monitor Tracing: + external FHT monitor used, + external uterine monitor used, + category I and + normal FHT variability Results & Data Vital Signs (Past 12 Hours) Vital Signs Temp Pulse Resp BP Pulse Ox 12/09/23 21:07 81 95 12/09/23 21:06 73 126/74 12/09/23 21:02 84 96 12/09/23 21:00 18 12/09/23 21:00 98.1 F 18 12/09/23 20:58 105 H 83 L 12/09/23 20:57 98 H 98 12/09/23 20:52 86 L 12/09/23 20:52 105 H 12/09/23 20:52 94 H 131/76 87 L 12/09/23 20:47 82 98 12/09/23 20:42 82 97 12/09/23 20:37 80 18 98 12/09/23 20:36 85 127/62 12/09/23 20:32 85 98 12/09/23 20:28 90 85 L 12/09/23 20:27 89 96 12/09/23 20:22 82 98 12/09/23 20:21 80 125/65 12/09/23 20:19 90 90 12/09/23 20:17 86 98 12/09/23 20:12 79 97 12/09/23 20:07 81 118/72 99 12/09/23 20:02 82 99 12/09/23 20:00 80 18 88 L 12/09/23 19:57 75 100 12/09/23 19:55 90 86 L 12/09/23 19:53 79 117/72 12/09/23 19:52 77 97 12/09/23 19:47 99 12/09/23 19:47 122 H 12/09/23 19:47 119 H 89 L 12/09/23 19:42 88 96 12/09/23 19:37 82 96 12/09/23 19:35 84 124/76 12/09/23 19:32 84 97 12/09/23 19:27 79 97 12/09/23 19:22 80 97 12/09/23 19:21 77 123/78 12/09/23 19:17 80 98 12/09/23 19:15 18 12/09/23 19:15 98.2 F 18 12/09/23 19:12 89 100 12/09/23 19:10 93 H 90 12/09/23 19:07 80 96 12/09/23 19:06 82 129/76 12/09/23 19:02 83 100 12/09/23 19:01 20 12/09/23 19:01 20 12/09/23 18:59 103 H 84 L 12/09/23 18:57 96 H 98 12/09/23 18:52 106 H 92 12/09/23 18:51 104 H 132/73 12/09/23 18:47 97 H 86 L 12/09/23 18:46 88 82 L 12/09/23 18:42 83 95 12/09/23 18:37 72 99 12/09/23 18:35 71 113/66 12/09/23 18:32 73 98 12/09/23 18:31 20 12/09/23 18:31 20 12/09/23 18:27 73 98 12/09/23 18:22 81 98 12/09/23 18:21 71 112/67 12/09/23 18:17 72 98 12/09/23 18:12 73 99 12/09/23 18:07 72 98 12/09/23 18:06 68 115/69 12/09/23 18:02 84 84 L 12/09/23 18:01 20 12/09/23 18:01 20 12/09/23 17:57 69 97 12/09/23 17:52 71 97 12/09/23 17:50 71 114/64 12/09/23 17:48 76 83 L 12/09/23 17:47 70 98 12/09/23 17:42 73 111/57 L 98 12/09/23 17:40 85 89 L 12/09/23 17:37 75 97 12/09/23 17:32 70 95 12/09/23 17:31 20 12/09/23 17:31 20 12/09/23 17:27 71 95 12/09/23 17:22 78 96 12/09/23 17:21 67 115/70 12/09/23 17:17 67 96 12/09/23 17:12 67 96 12/09/23 17:07 96 12/09/23 17:07 71 12/09/23 17:07 67 110/69 12/09/23 17:04 80 87 L 12/09/23 17:02 70 96 12/09/23 17:01 20 12/09/23 17:01 98.8 F 20 12/09/23 16:57 67 97 12/09/23 16:52 69 119/68 98 12/09/23 16:47 74 97 12/09/23 16:42 71 93 12/09/23 16:37 97 12/09/23 16:37 66 12/09/23 16:37 64 129/80 12/09/23 16:32 69 99 12/09/23 16:31 20 12/09/23 16:31 20 12/09/23 16:27 79 100 12/09/23 16:22 76 98 12/09/23 16:21 64 122/72 12/09/23 16:17 74 97 12/09/23 16:12 68 97 12/09/23 16:07 68 97 12/09/23 16:05 67 113/65 12/09/23 16:04 77 88 L 12/09/23 16:02 74 95 12/09/23 16:01 20 12/09/23 16:01 20 12/09/23 15:57 70 100 12/09/23 15:52 71 99 12/09/23 15:51 64 112/66 12/09/23 15:49 73 86 L 12/09/23 15:47 72 96 12/09/23 15:42 66 97 12/09/23 15:37 69 98 12/09/23 15:36 68 112/67 12/09/23 15:32 68 99 12/09/23 15:31 20 12/09/23 15:31 98.6 F 20 12/09/23 15:27 64 97 12/09/23 15:22 71 100 12/09/23 15:21 64 106/60 12/09/23 15:17 78 85 L 12/09/23 15:12 63 97 12/09/23 15:07 65 98 12/09/23 15:06 60 117/70 12/09/23 15:02 62 98 12/09/23 15:01 20 12/09/23 15:01 20 12/09/23 14:57 70 99 12/09/23 14:52 68 100 12/09/23 14:51 69 105/63 12/09/23 14:47 61 98 12/09/23 14:42 84 100 12/09/23 14:39 84 102/55 L 12/09/23 14:37 95 H 99 12/09/23 14:36 84 93 12/09/23 14:32 86 100 12/09/23 14:31 20 12/09/23 14:31 20 12/09/23 14:26 78 98 12/09/23 14:22 84 91 12/09/23 14:21 96 12/09/23 14:21 89 12/09/23 14:21 85 120/72 12/09/23 14:16 67 96 12/09/23 14:13 70 94 12/09/23 14:11 68 95 12/09/23 14:06 95 12/09/23 14:06 66 12/09/23 14:06 75 120/72 12/09/23 14:01 79 97 12/09/23 13:56 71 97 12/09/23 13:51 97 12/09/23 13:51 73 12/09/23 13:51 73 123/75 12/09/23 13:46 72 97 12/09/23 13:41 67 98 12/09/23 13:36 98 12/09/23 13:36 69 12/09/23 13:36 67 121/75 12/09/23 13:31 78 20 99 12/09/23 13:26 68 96 12/09/23 13:21 94 12/09/23 13:21 79 12/09/23 13:21 78 111/68 12/09/23 13:16 69 94 12/09/23 13:11 71 95 12/09/23 13:06 96 12/09/23 13:06 72 12/09/23 13:06 73 114/68 12/09/23 13:01 98.6 F 80 18 98 12/09/23 12:56 77 96 12/09/23 12:51 73 123/75 96 12/09/23 12:46 71 95 12/09/23 12:41 69 95 12/09/23 12:36 97 12/09/23 12:36 70 12/09/23 12:36 75 116/73 12/09/23 12:34 79 93 12/09/23 12:31 77 20 95 12/09/23 12:26 71 96 12/09/23 12:21 83 119/73 96 12/09/23 12:16 73 96 12/09/23 12:11 74 96 12/09/23 12:09 78 94 12/09/23 12:06 75 130/84 95 12/09/23 12:03 72 93 12/09/23 12:01 74 18 97 12/09/23 11:56 69 98 12/09/23 11:53 77 92 12/09/23 11:51 67 119/71 98 12/09/23 11:46 71 98 12/09/23 11:41 98 12/09/23 11:41 74 12/09/23 11:41 71 93 12/09/23 11:36 98 12/09/23 11:36 77 12/09/23 11:36 68 114/73 12/09/23 11:31 73 18 96 12/09/23 11:26 75 97 12/09/23 11:21 77 117/73 98 12/09/23 11:16 75 98 12/09/23 11:11 69 98 12/09/23 11:06 64 98 12/09/23 11:05 67 103/59 L 12/09/23 11:01 98.6 F 65 20 97 12/09/23 10:56 63 97 12/09/23 10:51 99 12/09/23 10:51 70 12/09/23 10:51 66 101/55 L 12/09/23 10:46 66 98 12/09/23 10:41 73 97 12/09/23 10:36 66 99 12/09/23 10:35 68 99/57 L 12/09/23 10:31 72 20 96 12/09/23 10:26 67 98 12/09/23 10:21 99 12/09/23 10:21 71 12/09/23 10:21 64 94/56 L 12/09/23 10:16 72 98 12/09/23 10:11 71 98 12/09/23 10:06 73 97 12/09/23 10:05 70 104/67 12/09/23 10:01 72 20 97 12/09/23 09:56 80 97 12/09/23 09:54 71 94 12/09/23 09:51 75 95 12/09/23 09:50 68 106/65 12/09/23 09:49 70 94 12/09/23 09:46 68 95 12/09/23 09:41 84 98 12/09/23 09:36 97 12/09/23 09:36 78 12/09/23 09:36 70 108/73 12/09/23 09:34 73 94 12/09/23 09:31 70 20 95 12/09/23 09:26 73 95 12/09/23 09:22 93 12/09/23 09:22 72 12/09/23 09:22 68 110/69 12/09/23 09:21 66 96 12/09/23 09:16 72 96 Coding Level of Care Code None Diagnoses 41 weeks gestation of O48.0; Z3A.41 Encounter for induction of labor Z34.90
[2023-12-09] MEDS ORDERED: LIDOCAINE 2% MPF LOCAL 5 ML VIAL ONE (22:35)
[2023-12-09] MEDS ORDERED: fentaNYL citrate PF 100 MCG/2 ML VIAL ONE (22:35)
--- NOTE | 2023-12-09 22:43 | Anesthesia Procedure Note ---
Date of Service December 09, 2023 Anesthesia Epidural Re-Dose Vital Signs Temp Pulse Resp BP Pulse Ox 36.7 C 90 18 122/69 97 12/09/23 21:00 12/09/23 22:40 12/09/23 22:00 12/09/23 22:40 12/09/23 22:37 Notes Pain Intensity: 3 Dilatation (cm): 10.0 Effacement (%): 100 Called by nursing to evaluate epidural as the patient is having increased pain. The epidural was re-dosed with the following medications (all medications via epidural route) after negative aspiration of the epidural catheter for CSF/HEME. 2% lidocaine 5ml with fentanyl 100mcg. After Epidural Re-Dose Mental Status: alert / awake / arousable Pain: improving with treatment Airway Patency, RR, SpO2: stable & adequate BP & HR: stable & adequate
[2023-12-10] MEDS: OXYTOCIN 30 UNITS/NSS 30 UNITS/500 ML BAG IV PRN (03:49)
--- NOTE | 2023-12-10 04:07 | Delivery Summary ---
Vaginal Delivery Summary Date of Service December 10, 2023 Vaginal Delivery Summary VAVD The patient was pushing x 3hrs and requested assistance due to maternal exhaustion. SVE c/c/+2, good effort with pushing. Informed consent obtained to proceed with vacuum assistance. Bladder drained under sterile conditions for 200cc. Vacuum applied. The patient pushed with 4 pulls and 3 pop offs to deliver a viable male Apgars 7 and 9 via VAVD over mediolateral episiotomy. Mild shoulder dystocia encountered relieved with Artemio maneuvers and effective maternal expulsive efforts and gentle downward traction. Mouth and nose bulb suctioned at perineum. Remainder of shoulders and body delivered. was vigorous and crying at . Cord clamped at 30 seconds of life and to maternal abdomen where the cord was then doubly clamped and cut. Placenta delivered partially manually as coming through os but needed assistance and was intact, three-vessel cord. Uterus swept x 2 for no retained products. However hemostasis not achieved with dilute pitocin and uterine massage and cytotec 1000mcg placed vaginally and after checking bp, methergine im x 1 given. Cervix and sulci intact. Episiotomy repaired in routine fashion with 3-0 vicryl. Hemostasis now adequate. All findings at delivery and post delivery reviewed with patient and plan 24hr of abx due to uterine exploration x 2. QBL 438 cc. Mother and baby stable in recovery. [facility] Vaginal Delivery Charge Delivery Type Details: VAVD
[2023-12-10] MEDS: IBUPROFEN 600 MG TAB PO ONE (04:08)
[2023-12-10] MEDS ORDERED: ACETAMINOPHEN 325 MG TAB PO PRN (04:19)
[2023-12-10] MEDS ORDERED: HYDROCORTISONE ACETATE 25 MG SUPP PR PRN (04:19)
[2023-12-10] MEDS ORDERED: oxyCODONE/ACETAMINOPHEN 5mg/325mg TAB PO PRN (04:19)
[2023-12-10] MEDS ORDERED: OXYTOCIN 30 UNITS/NSS 30 UNITS/500 ML BAG IV PRN (04:19)
[2023-12-10] MEDS: miSOPROStoL 200 MCG TAB PR ONE (04:49)
[2023-12-10] MEDS: METHYLERGONOVINE MALEATE 0.2 MG/ML AMP IM ONE (04:49)
[2023-12-10] MEDS: OXYTOCIN 20 UNITS/LR 1,002 ML IV SCH (04:50)
[2023-12-10] MEDS: ceFAZolin 2000MG 2,000 MG/15 ML SYR IV SCH (04:50)
--- NOTE | 2023-12-10 06:07 | Anesthesia Procedure Note ---
Date of Service December 10, 2023 Anesthesia Post Epidural Note Vital Signs Vital Signs: Temp Pulse Resp BP Pulse Ox 36.8 C 68 18 122/61 100 12/10/23 03:04 12/10/23 05:55 12/10/23 05:25 12/10/23 05:55 12/10/23 03:22 Pain Intensity Right Abdomen: Pain Intensity: 0 Head: Pain Intensity: 0 Notes Mental Status: alert / awake / arousable Nausea / Vomiting: adequately controlled Pain: adequately controlled Airway Patency, RR, SpO2: stable & adequate BP & HR: stable & adequate Hydration State: stable & adequate Neuraxial Anesthesia: was administered and sensory block is resolving Anesthetic Complications: no major complications apparent and Pt Satisfied with anesthetic care Epidural: Removed without complications and With tip intact
[2023-12-10] MEDS: PRENATAL VITAMIN 1 TAB PO SCH (08:05)
[2023-12-10] MEDS: IBUPROFEN 600 MG TAB PO PRN (08:10)
[2023-12-10] MEDS: BENZOCAINE 20% SPRY 85 APPLN/85 GM CAN EXT PRN (08:10)
[2023-12-10] MEDS: DOCUSATE SODIUM 100 MG CAP PO SCH (08:11)
[2023-12-11 06:50] LABS: Hematocrit (blood only) 32.7 % (37.0-47.0); Hemoglobin 11.3 g/dl (12.0-16.0)
[2023-12-11 08:07] VITALS: O2SAT 99
--- NOTE | 2023-12-11 08:08 | Obstetrical Progress Note ---
Date of Service December 11, 2023 Assessment & Plan (1) Encounter for care and examination after delivery: 33 yo PP1 from , doing well -Meeting all pp milestones -O+/rubella nonimm - mmr ordered/ -f/u 6 weeks for appt, desires dc home today Subjective Ambulation: ambulating normally Voiding: no voiding problems Passing Gas:: Yes Diet Tolerance:: regular diet Lochia:: Small Feeding Type:: breast feeding Pain well managed with medication Review of Systems Denies fevers, chills, n/v, TIDWELL, CP, SOB Physical Exam Constitutional WD/WN, vitals as above no acute distress Respiratory normal respiratory effort, lungs clear to auscultation Cardiovascular RRR, no murmur, no edema Gastrointestinal (Abdomen) Percussion/Palpation: abdomen soft; abdomen nontender fundus firm at umbilicus and NT Musculoskeletal BLE symmetric, nonerythematous, nontender Results & Data Vital Signs (Past 12 Hours) Vital Signs Temp Pulse Resp BP Pulse Ox O2 Del Method 12/11/23 03:23 97.5 F L 72 16 109/70 98 Room Air 12/10/23 23:14 97.7 F 68 18 112/74 98 Room Air 12/10/23 20:15 97.7 F 74 16 108/73 97 Room Air
[2023-12-11 13:03] VITALS: BP 105/66; PULSE 65; RESP 20; TEMP 97.9
[2023-12-11] MEDS ORDERED: MEASLES, MUMPS & RUBELLA VIRUS VACCINE (MMR) 0.5ML VIAL ONE (13:21)
[2023-12-11] MEDS: MEASLES, MUMPS & RUBELLA VIRUS VACCINE (MMR) 0.5ML VIAL SQ ONE (13:31)
[2023-12-11] MEDS: DIPHTHER/TETAN/PERTUS Vaccine (Tdap, Adol/Adult) 0.5mL IM ONE (13:36)
[2023-12-11] MEDS ORDERED: bisacodyL 5 MG TABEC PO SCH (20:00)
--- NOTE | 2023-12-12 18:59 | Discharge Summary ---
Date of Service Admit date 12/08/23 Discharge date 12/11/23 Admission HPI Per Admitting Provider Pt is a 33 y/o female currently at 42 [facility] with an ERIC 12/01/23 as determined by Ultrasound who is here for induction. Her was uncomplicated. _X contractions; _X movement; _ fluid loss; _ bloody show External FHT and external uterine monitors used; Category 1 tracing; moderate FHT variability. Had regular appointments with OB. Labs: (04/26/23) Blood type: O+ Antibody screen: neg H.3 (today) Hct:38.3% (today) WBC: 9.24 (today) Plt: 165 (today) Rubella: Non-immune VDRL/RPR: Neg Gonorrhea: Neg Chlamydia: Neg HIV: neg HbSAg: Non immune GBS: neg Other screens: cff-DNA: _ (see scanned documents) Discharge Data Consultations 12/08/23 08:04 Consult Anesthesiology Stat Hospital Course (1) Encounter for care and examination after delivery: Patient underwent induction of labor with yoo ripening balloon and pitocin. Ultimately dilated to complete and pushed for >3hrs. Requested assistance and vacuum assisted delivery performed. See details in notes. course uncomplicated. Post op hemoglobin 11.3. Ready for dc home on her ppd#1. F/u 6wks. Instructions reviewed. MMR given. Coding Level of Care Code None Diagnoses Encounter for care and examination after delivery Z39.2
== END 2023-12-11 14:15 | disposition home or self-care (01) | DRG 807 ==
LOC: 4S1 07:43 → 4E2 12-10 06:52
DX: O48.0 Post-term pregnancy; Z37.0 Single live birth; Z3A.41 41 weeks gestation of pregnancy; O75.81 Maternal exhaustion complicating labor and delivery; Z91.011 Allergy to milk products; Z79.899 Other long term (current) drug therapy